=== PATIENT | male | born 1930 | race Caucasian/White ===

== ENCOUNTER 2021-06-13 18:47 | Inpatient (IN) ==
[2021-06-16] MEDS: Cefdinir 300 MG CAPSULE PO SCH (21:48)
[2021-06-17] MEDS: *HR* Enoxaparin 40 MG/0.4 ML SYRINGE SQ SCH (05:39)
[2021-06-17] MEDS: Multivit/Ca/Min/Fe/FA 1 TAB TABLET PO SCH (07:21)
[2021-06-17] MEDS: Cefdinir 300 MG CAPSULE PO SCH ×2 (07:22→21:21)
[2021-06-17 07:39] LABS: Basophils % 0.5 %; Eosinophils # 0.1 K/mcL (0.0-0.6); Eosinophils % 0.9 %; Hematocrit 35.4 % (37.5-50.1); Hemoglobin 11.8 g/dL (12.9-16.9); Immature Granulocytes % 2.5 % (0-4); Lymphocytes # 1.4 K/mcL (0.6-4.6); Lymphocytes % 18.2 %; Mean Corpuscular HGB Conc 33.3 g/dL (31.6-35.5); Mean Corpuscular Hemoglobin 28.9 pg (28.0-33.3); Mean Corpuscular Volume 86.6 fL (83.0-100.0); Mean Platelet Volume 9.3 fL (9.4-12.4); Monocytes % 12.6 %; Neutrophils # 5.1 K/mcL (1.6-8.9); Platelet Count 333 K/mcL (140-400); Red Blood Count 4.09 M/mcL (4.19-5.50); Red Cell Distribution Width 14.8 % (11.5-14.5); Segmented Neutrophils % 65.3 %; White Blood Count 7.9 K/mcL (4.3-11.1)
[2021-06-17 07:51] LABS: BUN/Creatinine Ratio 14 (6-26); Blood Urea Nitrogen 18 mg/dL (8-23); Calcium 9.1 mg/dL (8.6-10.3); Carbon Dioxide 22 mEq/L (23-29); Chloride 110 mEq/L (98-107); Glucose 112 mg/dL (70-105); Osmolality,Calculated 287 (280-300); Sodium 137 mEq/L (136-145); eGFR For African Americans > 60 (> 60); eGFR For Non-African Americans 53 (> 60)
[2021-06-17] MEDS: Cholecalciferol (D-3) 1,000 UNIT (25MCG) TABLET PO SCH (08:37)
[2021-06-17] MEDS: Cyanocobalamin (B-12) 1,000 MCG TABLET PO SCH (08:37)
[2021-06-17] MEDS: lisinopriL 5 MG TABLET PO SCH (08:37)
[2021-06-17] MEDS: predniSONE 20 MG TABLET PO SCH (18:08)
[2021-06-17] MEDS: Colchicine 0.6 MG TABLET PO SCH (21:21)
[2021-06-18] MEDS: *HR* Enoxaparin 40 MG/0.4 ML SYRINGE SQ SCH (05:58)
[2021-06-18 07:24] LABS: Hematocrit 33.1 % (37.5-50.1); Hemoglobin 11.1 g/dL (12.9-16.9); Mean Corpuscular HGB Conc 33.5 g/dL (31.6-35.5); Mean Corpuscular Hemoglobin 29.1 pg (28.0-33.3); Mean Corpuscular Volume 86.9 fL (83.0-100.0); Mean Platelet Volume 9.3 fL (9.4-12.4); Platelet Count 319 K/mcL (140-400); Red Blood Count 3.81 M/mcL (4.19-5.50); Red Cell Distribution Width 14.6 % (11.5-14.5); White Blood Count 9.9 K/mcL (4.3-11.1)
[2021-06-18 07:37] LABS: BUN/Creatinine Ratio 14 (6-26); Blood Urea Nitrogen 18 mg/dL (8-23); Calcium 9.4 mg/dL (8.6-10.3); Carbon Dioxide 24 mEq/L (23-29); Chloride 108 mEq/L (98-107); Glucose 142 mg/dL (70-105); Osmolality,Calculated 288 (280-300); Potassium 4.1 mEq/L (3.5-5.1); Sodium 137 mEq/L (136-145); Uric Acid 7.7 mg/dL (2.3-7.6); eGFR For African Americans > 60 (> 60); eGFR For Non-African Americans 52 (> 60)
[2021-06-18] MEDS: lisinopriL 5 MG TABLET PO SCH (11:16)
[2021-06-18] MEDS: Cyanocobalamin (B-12) 1,000 MCG TABLET PO SCH (11:16)
[2021-06-18] MEDS: Cefdinir 300 MG CAPSULE PO SCH ×2 (11:16→20:45)
[2021-06-18] MEDS: Cholecalciferol (D-3) 1,000 UNIT (25MCG) TABLET PO SCH (11:16)
[2021-06-18] MEDS: Colchicine 0.6 MG TABLET PO SCH ×2 (11:17→20:45)
[2021-06-18] MEDS: Multivit/Ca/Min/Fe/FA 1 TAB TABLET PO SCH (11:17)
[2021-06-18] MEDS: predniSONE 20 MG TABLET PO SCH ×2 (11:17→16:20)
[2021-06-19] MEDS: *HR* Enoxaparin 40 MG/0.4 ML SYRINGE SQ SCH (05:23)
[2021-06-19] MEDS: Multivit/Ca/Min/Fe/FA 1 TAB TABLET PO SCH (05:23)
[2021-06-19] MEDS: predniSONE 20 MG TABLET PO SCH ×2 (09:17→16:36)
[2021-06-19] MEDS: Cholecalciferol (D-3) 1,000 UNIT (25MCG) TABLET PO SCH (09:17)
[2021-06-19] MEDS: Cyanocobalamin (B-12) 1,000 MCG TABLET PO SCH (09:18)
[2021-06-19] MEDS: Colchicine 0.6 MG TABLET PO SCH ×2 (09:18→21:00)
[2021-06-19] MEDS: Cefdinir 300 MG CAPSULE PO SCH ×2 (09:18→20:59)
[2021-06-19] MEDS: lisinopriL 5 MG TABLET PO SCH (09:19)
[2021-06-20] MEDS: Multivit/Ca/Min/Fe/FA 1 TAB TABLET PO SCH (06:31)
[2021-06-20] MEDS: *HR* Enoxaparin 40 MG/0.4 ML SYRINGE SQ SCH (06:31)
[2021-06-20] MEDS: Cefdinir 300 MG CAPSULE PO SCH ×2 (08:38→21:02)
[2021-06-20] MEDS: lisinopriL 5 MG TABLET PO SCH (08:38)
[2021-06-20] MEDS: Cyanocobalamin (B-12) 1,000 MCG TABLET PO SCH (08:39)
[2021-06-20] MEDS: Cholecalciferol (D-3) 1,000 UNIT (25MCG) TABLET PO SCH (08:39)
[2021-06-20] MEDS: Colchicine 0.6 MG TABLET PO SCH ×2 (08:39→21:20)
[2021-06-20] MEDS: predniSONE 20 MG TABLET PO SCH ×2 (09:00→16:25)
[2021-06-20] MEDS ORDERED: Oxymetazoline Nasal SPRAY BOTTLE 15ML NS PRN (09:14)
[2021-06-21] MEDS: *HR* Enoxaparin 40 MG/0.4 ML SYRINGE SQ SCH (05:42)
[2021-06-21] MEDS: Multivit/Ca/Min/Fe/FA 1 TAB TABLET PO SCH (05:42)
[2021-06-21] MEDS: Cefdinir 300 MG CAPSULE PO SCH ×2 (09:24→20:05)
[2021-06-21] MEDS: Cyanocobalamin (B-12) 1,000 MCG TABLET PO SCH (09:24)
[2021-06-21] MEDS: Colchicine 0.6 MG TABLET PO SCH ×2 (09:24→20:05)
[2021-06-21] MEDS: Cholecalciferol (D-3) 1,000 UNIT (25MCG) TABLET PO SCH (09:24)
[2021-06-21] MEDS: predniSONE 20 MG TABLET PO SCH ×2 (09:25→17:44)
[2021-06-22] MEDS: Multivit/Ca/Min/Fe/FA 1 TAB TABLET PO SCH (06:00)
[2021-06-22] MEDS: *HR* Enoxaparin 40 MG/0.4 ML SYRINGE SQ SCH (06:00)
[2021-06-22] MEDS: lisinopriL 5 MG TABLET PO SCH (10:06)
[2021-06-22] MEDS: Colchicine 0.6 MG TABLET PO SCH ×2 (10:06→19:39)
[2021-06-22] MEDS: Cyanocobalamin (B-12) 1,000 MCG TABLET PO SCH (10:06)
[2021-06-22] MEDS: predniSONE 20 MG TABLET PO SCH ×2 (10:07→17:49)
[2021-06-22] MEDS: Cholecalciferol (D-3) 1,000 UNIT (25MCG) TABLET PO SCH (10:07)
[2021-06-22] MEDS: Cefdinir 300 MG CAPSULE PO SCH ×2 (10:07→19:39)
[2021-06-23] MEDS: *HR* Enoxaparin 40 MG/0.4 ML SYRINGE SQ SCH (05:09)
[2021-06-23] MEDS: Multivit/Ca/Min/Fe/FA 1 TAB TABLET PO SCH (05:09)
[2021-06-23] MEDS: Cyanocobalamin (B-12) 1,000 MCG TABLET PO SCH (09:36)
[2021-06-23] MEDS: Cefdinir 300 MG CAPSULE PO SCH ×2 (09:36→19:56)
[2021-06-23] MEDS: Cholecalciferol (D-3) 1,000 UNIT (25MCG) TABLET PO SCH (09:36)
[2021-06-23] MEDS: Colchicine 0.6 MG TABLET PO SCH (09:36)
[2021-06-23] MEDS: lisinopriL 5 MG TABLET PO SCH (09:36)
[2021-06-23] MEDS: predniSONE 20 MG TABLET PO SCH (18:10)
[2021-06-24] MEDS: *HR* Enoxaparin 40 MG/0.4 ML SYRINGE SQ SCH (06:26)
[2021-06-24] MEDS: Multivit/Ca/Min/Fe/FA 1 TAB TABLET PO SCH (06:26)
[2021-06-24] MEDS: allopurinoL 100 MG TABLET PO SCH (09:00)
[2021-06-24] MEDS: Cefdinir 300 MG CAPSULE PO SCH ×2 (09:00→21:22)
[2021-06-24] MEDS: Cyanocobalamin (B-12) 1,000 MCG TABLET PO SCH (09:00)
[2021-06-24] MEDS: lisinopriL 5 MG TABLET PO SCH (09:00)
[2021-06-24] MEDS: Cholecalciferol (D-3) 1,000 UNIT (25MCG) TABLET PO SCH (09:00)
[2021-06-25] MEDS: Multivit/Ca/Min/Fe/FA 1 TAB TABLET PO SCH (06:26)
[2021-06-25] MEDS: *HR* Enoxaparin 40 MG/0.4 ML SYRINGE SQ SCH (06:26)
[2021-06-25] MEDS: Cholecalciferol (D-3) 1,000 UNIT (25MCG) TABLET PO SCH (08:21)
[2021-06-25] MEDS: Cefdinir 300 MG CAPSULE PO SCH (08:21)
[2021-06-25] MEDS: Cyanocobalamin (B-12) 1,000 MCG TABLET PO SCH (08:22)
[2021-06-25] MEDS: allopurinoL 100 MG TABLET PO SCH (08:22)
[2021-06-25] MEDS: lisinopriL 5 MG TABLET PO SCH (08:22)
[2021-06-26] MEDS: *HR* Enoxaparin 40 MG/0.4 ML SYRINGE SQ SCH (06:07)
[2021-06-26] MEDS: allopurinoL 100 MG TABLET PO SCH (09:45)
[2021-06-26] MEDS: Multivit/Ca/Min/Fe/FA 1 TAB TABLET PO SCH (09:45)
[2021-06-26] MEDS: Cyanocobalamin (B-12) 1,000 MCG TABLET PO SCH (09:45)
[2021-06-26] MEDS: Cholecalciferol (D-3) 1,000 UNIT (25MCG) TABLET PO SCH (09:45)
[2021-06-26] MEDS: lisinopriL 5 MG TABLET PO SCH (09:46)
[2021-06-27] MEDS: *HR* Enoxaparin 40 MG/0.4 ML SYRINGE SQ SCH (06:08)
[2021-06-27] MEDS: Multivit/Ca/Min/Fe/FA 1 TAB TABLET PO SCH (06:09)
[2021-06-27 07:08] LABS: Basophils # 0.1 K/mcL (0.0-0.2); Eosinophils # 0.1 K/mcL (0.0-0.6); Eosinophils % 1.6 %; Hematocrit 41.3 % (37.5-50.1); Hemoglobin 13.3 g/dL (12.9-16.9); Lymphocytes % 24.7 %; Mean Corpuscular HGB Conc 32.2 g/dL (31.6-35.5); Mean Corpuscular Hemoglobin 28.5 pg (28.0-33.3); Mean Corpuscular Volume 88.4 fL (83.0-100.0); Monocytes # 1.2 K/mcL (0.0-1.3); Monocytes % 14.1 %; Neutrophils # 4.8 K/mcL (1.6-8.9); Platelet Count 367 K/mcL (140-400); Red Blood Count 4.67 M/mcL (4.19-5.50); Red Cell Distribution Width 14.5 % (11.5-14.5); Segmented Neutrophils % 57.6 %; White Blood Count 8.2 K/mcL (4.3-11.1)
[2021-06-27 07:36] LABS: Calcium 9.9 mg/dL (8.6-10.3); Potassium 4.4 mEq/L (3.5-5.1)
[2021-06-27] MEDS: Cyanocobalamin (B-12) 1,000 MCG TABLET PO SCH (10:14)
[2021-06-27] MEDS: allopurinoL 100 MG TABLET PO SCH (10:14)
[2021-06-27] MEDS: Cholecalciferol (D-3) 1,000 UNIT (25MCG) TABLET PO SCH (10:14)
[2021-06-27] MEDS: lisinopriL 5 MG TABLET PO SCH (10:25)
[2021-06-28] MEDS: *HR* Enoxaparin 40 MG/0.4 ML SYRINGE SQ SCH (06:35)
[2021-06-28] MEDS: Multivit/Ca/Min/Fe/FA 1 TAB TABLET PO SCH (06:36)
[2021-06-28] MEDS: Cyanocobalamin (B-12) 1,000 MCG TABLET PO SCH (10:27)
[2021-06-28] MEDS: allopurinoL 100 MG TABLET PO SCH (10:27)
[2021-06-28] MEDS: Cholecalciferol (D-3) 1,000 UNIT (25MCG) TABLET PO SCH (10:27)
[2021-06-28] MEDS: lisinopriL 5 MG TABLET PO SCH (10:27)
[2021-06-28] MEDS: Megestrol Acetate 400 MG/10 ML UDC PO SCH (15:59)
[2021-06-29] MEDS: *HR* Enoxaparin 40 MG/0.4 ML SYRINGE SQ SCH (06:06)
[2021-06-29] MEDS: Multivit/Ca/Min/Fe/FA 1 TAB TABLET PO SCH (08:20)
[2021-06-29] MEDS: Cholecalciferol (D-3) 1,000 UNIT (25MCG) TABLET PO SCH (08:21)
[2021-06-29] MEDS: allopurinoL 100 MG TABLET PO SCH (08:21)
[2021-06-29] MEDS: Megestrol Acetate 400 MG/10 ML UDC PO SCH (08:21)
[2021-06-29] MEDS: Cyanocobalamin (B-12) 1,000 MCG TABLET PO SCH (08:21)
[2021-06-29] MEDS: lisinopriL 5 MG TABLET PO SCH (08:22)
[2021-06-30] MEDS: *HR* Enoxaparin 40 MG/0.4 ML SYRINGE SQ SCH (05:35)
[2021-06-30] MEDS: Megestrol Acetate 400 MG/10 ML UDC PO SCH (08:41)
[2021-06-30] MEDS: Cholecalciferol (D-3) 1,000 UNIT (25MCG) TABLET PO SCH (08:41)
[2021-06-30] MEDS: Cyanocobalamin (B-12) 1,000 MCG TABLET PO SCH (08:41)
[2021-06-30] MEDS: allopurinoL 100 MG TABLET PO SCH (08:41)
[2021-06-30] MEDS: Multivit/Ca/Min/Fe/FA 1 TAB TABLET PO SCH (08:41)
[2021-06-30 08:57] LABS: Hematocrit 41.5 % (37.5-50.1); Hemoglobin 13.7 g/dL (12.9-16.9); Mean Corpuscular Hemoglobin 29.5 pg (28.0-33.3); Mean Corpuscular Volume 89.4 fL (83.0-100.0); Mean Platelet Volume 11.9 fL (9.4-12.4); Platelet Count 236 K/mcL (140-400); Red Blood Count 4.64 M/mcL (4.19-5.50); Red Cell Distribution Width 14.5 % (11.5-14.5); White Blood Count 10.6 K/mcL (4.3-11.1)
[2021-06-30 09:34] LABS: Calcium 10.1 mg/dL (8.6-10.3); Potassium 4.5 mEq/L (3.5-5.1)
[2021-06-30] MEDS: 0.9 % Sodium Chloride 1,000 ML IVC SCH (14:58)
[2021-07-01] MEDS: 0.9 % Sodium Chloride 1,000 ML IVC SCH ×4 (01:27→22:50)
[2021-07-01] MEDS: Cyanocobalamin (B-12) 1,000 MCG TABLET PO SCH (08:14)
[2021-07-01] MEDS: Cholecalciferol (D-3) 1,000 UNIT (25MCG) TABLET PO SCH (08:15)
[2021-07-01] MEDS: Megestrol Acetate 400 MG/10 ML UDC PO SCH (08:15)
[2021-07-01] MEDS: allopurinoL 100 MG TABLET PO SCH (08:15)
[2021-07-01] MEDS: Multivit/Ca/Min/Fe/FA 1 TAB TABLET PO SCH (08:16)
[2021-07-01 11:39] LABS: Hematocrit 42.7 % (37.5-50.1); Hemoglobin 13.8 g/dL (12.9-16.9); Mean Corpuscular HGB Conc 32.3 g/dL (31.6-35.5); Mean Corpuscular Hemoglobin 28.9 pg (28.0-33.3); Mean Corpuscular Volume 89.3 fL (83.0-100.0); Mean Platelet Volume 11.1 fL (9.4-12.4); Platelet Count 275 K/mcL (140-400); Red Blood Count 4.78 M/mcL (4.19-5.50); Red Cell Distribution Width 14.3 % (11.5-14.5)
[2021-07-01 11:51] LABS: Calcium 9.6 mg/dL (8.6-10.3); Potassium 4.8 mEq/L (3.5-5.1)
[2021-07-01 14:19] LABS: Adenovirus Not Detected (Not Detect); Bordetella Pertussis Not Detected (Not Detect); Chlamydophila pneumoniae Not Detected (Not Detect); Coronavirus 229E Not Detected (Not Detect); Coronavirus HKU1 Not Detected (Not Detect); Coronavirus NL63 Not Detected (Not Detect); Coronavirus OC43 Not Detected (Not Detect); Human Metapneumovirus Not Detected (Not Detect); Human Rhinovirus/Enterovirus Not Detected (Not Detect); Influenza A Subtype 2009 H1 Not Detected (Not Detect); Influenza B Not Detected (Not Detect); Mycoplasma pneumoniae Not Detected (Not Detect); Parainfluenza Virus 1 Not Detected (Not Detect); Parainfluenza Virus 2 Not Detected (Not Detect); Parainfluenza Virus 3 Not Detected (Not Detect); Parainfluenza Virus 4 Not Detected (Not Detect); Respiratory Syncytial Virus Not Detected (Not Detect); SARS-CoV-2 Not Detected (Not Detect)
[2021-07-01] MEDS ORDERED: Albuterol 2.5 MG/3 ML NEBULIZER IH PRN (15:14)
[2021-07-01] MEDS: Piperacillin/Tazobactam 3.375 GM in 0.9 % Sodium Chloride Mini Bag 100 ML IVPB SCH ×2 (16:08→23:43)
[2021-07-01 16:13] LABS: Bilirubin,Urine Negative (Negative); Blood,Urine Moderate (Negative); Clarity,Urine Slightly Cloudy (Clear); Color,Urine Yellow (Yellow); Glucose,Urine (UA) Normal (Normal); Ketones,Urine Negative (Negative); Leukocyte Esterase,Urine Moderate (Negative); Nitrite,Urine Negative (Negative); Protein,Urine 30 mg/dL (Neg-Trace); Specific Gravity,Urine 1.015 (1.010-1.025); Urobilinogen,Urine Normal (Normal)
[2021-07-01 16:21] LABS: Bacteria,Urine Moderate per hpf (None-Few); WBC,Urine 15-30 per hpf (0-3)
[2021-07-02 06:34] LABS: Hematocrit 38.6 % (37.5-50.1); Hemoglobin 12.9 g/dL (12.9-16.9); Mean Corpuscular HGB Conc 33.4 g/dL (31.6-35.5); Mean Corpuscular Hemoglobin 29.1 pg (28.0-33.3); Mean Corpuscular Volume 87.1 fL (83.0-100.0); Mean Platelet Volume 10.4 fL (9.4-12.4); Platelet Count 311 K/mcL (140-400); Red Blood Count 4.43 M/mcL (4.19-5.50); Red Cell Distribution Width 14.5 % (11.5-14.5); White Blood Count 27.6 K/mcL (4.3-11.1)
[2021-07-02 06:54] LABS: Calcium 9.4 mg/dL (8.6-10.3); Potassium 4.6 mEq/L (3.5-5.1)
[2021-07-02 07:31] LABS: Lymphocytes # 2.2 K/mcL (0.6-4.6); Monocytes # 2.8 K/mcL (0.0-1.3); Neutrophils # 22.6 K/mcL (1.6-8.9); Platelet Estimate Normal (Normal)
[2021-07-02] MEDS: Megestrol Acetate 400 MG/10 ML UDC PO SCH (08:10)
[2021-07-02] MEDS: Multivit/Ca/Min/Fe/FA 1 TAB TABLET PO SCH (08:11)
[2021-07-02] MEDS: Cholecalciferol (D-3) 1,000 UNIT (25MCG) TABLET PO SCH (08:12)
[2021-07-02] MEDS: Piperacillin/Tazobactam 3.375 GM in 0.9 % Sodium Chloride Mini Bag 100 ML IVPB SCH (08:12)
[2021-07-02] MEDS: Cyanocobalamin (B-12) 1,000 MCG TABLET PO SCH (08:12)
[2021-07-02] MEDS: 0.9 % Sodium Chloride 1,000 ML IVC SCH (08:14)
[2021-07-02] MEDS ORDERED: Doxycycline 100 MG in 0.9 % Sodium Chloride Mini Bag 100 ML IVPB SCH (09:00)
[2021-07-02] MEDS ORDERED: Albumin 25% 25gram/100mL 25 GM/100 ML IV.SOLN IVPB ONE (09:05)
[2021-07-02] MEDS ORDERED: Hydrocortisone Sodium Succ 100 MG/2 ML VIAL IVP ONE (10:27)
[2021-07-02] MEDS ORDERED: *HR* LORazepam 2 MG/ML VIAL IVP ONE ×2 (11:28→11:50)
[2021-07-02] MEDS ORDERED: *HR* LORazepam 2 MG/ML VIAL ONE (11:28)
[2021-07-02] MEDS ORDERED: 0.9 % Sodium Chloride 1,000 ML IVC ONE (12:14)
[2021-07-02] MEDS ORDERED: 0.9 % Sodium Chloride 1,000 ML ONE (12:18)
[2021-07-02 15:04] VITALS: BP 70/50; PULSE 93; RESP 24; TEMP 98.3; O2SAT 98
== END 2021-07-02 12:30 | disposition short-term general hospital (02) ==
LOC: INPPIK 06-16 15:57
PROVIDERS: ADMIT Family Medicine; ATTEND Family Medicine

== ENCOUNTER 2021-07-11 11:55 | Inpatient (IN) ==
[2021-07-12] MEDS ORDERED: Acetaminophen 325 MG TABLET PO PRN (13:06)
[2021-07-12] MEDS ORDERED: Ondansetron ODT 4 MG TAB.RAPDIS SL PRN (13:08)
[2021-07-12] MEDS ORDERED: Ipratropium/Albuterol Neb 3 ML IH PRN (13:09)
[2021-07-12] MEDS: *HR* Heparin 5,000 UNIT/ML VIAL SQ SCH (21:07)
[2021-07-13] MEDS: *HR* Heparin 5,000 UNIT/ML VIAL SQ SCH ×2 (05:24→14:07)
[2021-07-13 07:27] LABS: Basophils # 0.1 K/mcL (0.0-0.2); Basophils % 0.8 %; Eosinophils # 0.1 K/mcL (0.0-0.6); Eosinophils % 1.3 %; Hematocrit 39.7 % (37.5-50.1); Hemoglobin 12.5 g/dL (12.9-16.9); Immature Granulocytes % 0.9 % (0-4); Lymphocytes # 1.7 K/mcL (0.6-4.6); Mean Corpuscular HGB Conc 31.5 g/dL (31.6-35.5); Mean Corpuscular Hemoglobin 28.3 pg (28.0-33.3); Mean Platelet Volume 9.4 fL (9.4-12.4); Monocytes # 0.9 K/mcL (0.0-1.3); Monocytes % 11.1 %; Neutrophils # 5.6 K/mcL (1.6-8.9); Platelet Count 336 K/mcL (140-400); Red Blood Count 4.41 M/mcL (4.19-5.50); Red Cell Distribution Width 15.2 % (11.5-14.5); Segmented Neutrophils % 65.9 %; White Blood Count 8.5 K/mcL (4.3-11.1)
[2021-07-13 07:52] LABS: Calcium 10.2 mg/dL (8.6-10.3); Potassium 4.3 mEq/L (3.5-5.1)
[2021-07-13] MEDS: Cholecalciferol (D-3) 1,000 UNIT (25MCG) TABLET PO SCH (08:38)
[2021-07-13] MEDS: Multivit/Ca/Min/Fe/FA 1 TAB TABLET PO SCH (08:38)
[2021-07-13] MEDS: cefTRIAXone 1,000 MG in 0.9 % Sodium Chloride 10 ML IVP SCH (08:39)
[2021-07-13] MEDS: Cyanocobalamin (B-12) 1,000 MCG TABLET PO SCH (08:39)
[2021-07-13] MEDS: DAPTOmycin 700 MG in 0.9 % Sodium Chloride 100 ML IVPB SCH (13:47)
[2021-07-14] MEDS: Cyanocobalamin (B-12) 1,000 MCG TABLET PO SCH (08:37)
[2021-07-14] MEDS: Cholecalciferol (D-3) 1,000 UNIT (25MCG) TABLET PO SCH (08:37)
[2021-07-14] MEDS: Multivit/Ca/Min/Fe/FA 1 TAB TABLET PO SCH (08:37)
[2021-07-14] MEDS: cefTRIAXone 1,000 MG in 0.9 % Sodium Chloride 10 ML IVP SCH (08:38)
[2021-07-15 07:18] LABS: Basophils # 0.1 K/mcL (0.0-0.2); Basophils % 0.6 %; Eosinophils # 0.2 K/mcL (0.0-0.6); Eosinophils % 1.9 %; Hematocrit 39.6 % (37.5-50.1); Hemoglobin 12.7 g/dL (12.9-16.9); Immature Granulocytes % 0.9 % (0-4); Lymphocytes # 1.7 K/mcL (0.6-4.6); Lymphocytes % 21.6 %; Mean Corpuscular HGB Conc 32.1 g/dL (31.6-35.5); Mean Corpuscular Hemoglobin 27.9 pg (28.0-33.3); Mean Platelet Volume 9.5 fL (9.4-12.4); Monocytes % 12.4 %; Platelet Count 388 K/mcL (140-400); Red Blood Count 4.55 M/mcL (4.19-5.50); Red Cell Distribution Width 14.9 % (11.5-14.5); Segmented Neutrophils % 62.6 %
[2021-07-15 07:20] LABS: Calcium 10.5 mg/dL (8.6-10.3); Potassium 4.4 mEq/L (3.5-5.1)
[2021-07-15] MEDS: Cholecalciferol (D-3) 1,000 UNIT (25MCG) TABLET PO SCH (09:09)
[2021-07-15] MEDS: Multivit/Ca/Min/Fe/FA 1 TAB TABLET PO SCH (09:09)
[2021-07-15] MEDS: cefTRIAXone 1,000 MG in 0.9 % Sodium Chloride 10 ML IVP SCH (09:10)
[2021-07-15] MEDS: Cyanocobalamin (B-12) 1,000 MCG TABLET PO SCH (09:11)
[2021-07-15] MEDS: DAPTOmycin 700 MG in 0.9 % Sodium Chloride 100 ML IVPB SCH (13:46)
[2021-07-16] MEDS: Cyanocobalamin (B-12) 1,000 MCG TABLET PO SCH (08:46)
[2021-07-16] MEDS: Multivit/Ca/Min/Fe/FA 1 TAB TABLET PO SCH (08:46)
[2021-07-16] MEDS: Cholecalciferol (D-3) 1,000 UNIT (25MCG) TABLET PO SCH (08:47)
[2021-07-16] MEDS: cefTRIAXone 1,000 MG in 0.9 % Sodium Chloride 10 ML IVP SCH (08:47)
[2021-07-17 06:35] LABS: Basophils # 0.1 K/mcL (0.0-0.2); Basophils % 0.9 %; Eosinophils # 0.1 K/mcL (0.0-0.6); Eosinophils % 1.6 %; Hematocrit 40.5 % (37.5-50.1); Hemoglobin 12.9 g/dL (12.9-16.9); Immature Granulocytes % 0.7 % (0-4); Lymphocytes % 28.3 %; Mean Corpuscular HGB Conc 31.9 g/dL (31.6-35.5); Mean Platelet Volume 9.5 fL (9.4-12.4); Monocytes % 14.3 %; Neutrophils # 3.8 K/mcL (1.6-8.9); Platelet Count 418 K/mcL (140-400); Red Cell Distribution Width 14.6 % (11.5-14.5); Segmented Neutrophils % 54.2 %; White Blood Count 6.9 K/mcL (4.3-11.1)
[2021-07-17 06:56] LABS: Calcium 10.5 mg/dL (8.6-10.3); Potassium 4.4 mEq/L (3.5-5.1)
[2021-07-17] MEDS: Cholecalciferol (D-3) 1,000 UNIT (25MCG) TABLET PO SCH (10:08)
[2021-07-17] MEDS: cefTRIAXone 1,000 MG in 0.9 % Sodium Chloride 10 ML IVP SCH (10:08)
[2021-07-17] MEDS: Multivit/Ca/Min/Fe/FA 1 TAB TABLET PO SCH (10:08)
[2021-07-17] MEDS: Cyanocobalamin (B-12) 1,000 MCG TABLET PO SCH (10:08)
[2021-07-17] MEDS: DAPTOmycin 700 MG in 0.9 % Sodium Chloride 100 ML IVPB SCH (16:36)
[2021-07-18] MEDS: Multivit/Ca/Min/Fe/FA 1 TAB TABLET PO SCH (08:31)
[2021-07-18] MEDS: Cholecalciferol (D-3) 1,000 UNIT (25MCG) TABLET PO SCH (08:31)
[2021-07-18] MEDS: Cyanocobalamin (B-12) 1,000 MCG TABLET PO SCH (08:32)
[2021-07-18] MEDS: cefTRIAXone 1,000 MG in 0.9 % Sodium Chloride 10 ML IVP SCH (08:33)
[2021-07-18 10:27] LABS: Basophils # 0.1 K/mcL (0.0-0.2); Basophils % 0.8 %; Eosinophils # 0.1 K/mcL (0.0-0.6); Eosinophils % 1.3 %; Hematocrit 40.2 % (37.5-50.1); Hemoglobin 12.6 g/dL (12.9-16.9); Immature Granulocytes % 1.2 % (0-4); Lymphocytes # 1.5 K/mcL (0.6-4.6); Lymphocytes % 19.8 %; Mean Corpuscular HGB Conc 31.3 g/dL (31.6-35.5); Mean Corpuscular Hemoglobin 27.9 pg (28.0-33.3); Mean Corpuscular Volume 89.1 fL (83.0-100.0); Mean Platelet Volume 9.4 fL (9.4-12.4); Neutrophils # 4.9 K/mcL (1.6-8.9); Platelet Count 415 K/mcL (140-400); Red Blood Count 4.51 M/mcL (4.19-5.50); Red Cell Distribution Width 14.6 % (11.5-14.5); Segmented Neutrophils % 63.9 %; White Blood Count 7.7 K/mcL (4.3-11.1)
[2021-07-18 10:41] LABS: Calcium 10.4 mg/dL (8.6-10.3); Potassium 4.6 mEq/L (3.5-5.1); Uric Acid 6.4 mg/dL (2.3-7.6)
[2021-07-19] MEDS: cefTRIAXone 1,000 MG in 0.9 % Sodium Chloride 10 ML IVP SCH (11:20)
[2021-07-19] MEDS: predniSONE 20 MG TABLET PO SCH (11:20)
[2021-07-19] MEDS: Multivit/Ca/Min/Fe/FA 1 TAB TABLET PO SCH (11:21)
[2021-07-19] MEDS: Cyanocobalamin (B-12) 1,000 MCG TABLET PO SCH (11:21)
[2021-07-19] MEDS: Cholecalciferol (D-3) 1,000 UNIT (25MCG) TABLET PO SCH (11:21)
[2021-07-19] MEDS: DAPTOmycin 700 MG in 0.9 % Sodium Chloride 100 ML IVPB SCH (16:01)
[2021-07-20] MEDS: DAPTOmycin 700 MG in 0.9 % Sodium Chloride 100 ML IVPB SCH (08:06)
[2021-07-20] MEDS: Cyanocobalamin (B-12) 1,000 MCG TABLET PO SCH (08:24)
[2021-07-20] MEDS: predniSONE 20 MG TABLET PO SCH (08:24)
[2021-07-20] MEDS: Cholecalciferol (D-3) 1,000 UNIT (25MCG) TABLET PO SCH (08:24)
[2021-07-20] MEDS: Multivit/Ca/Min/Fe/FA 1 TAB TABLET PO SCH (08:24)
[2021-07-20] MEDS: cefTRIAXone 1,000 MG in 0.9 % Sodium Chloride 10 ML IVP SCH (08:31)
[2021-07-21 07:55] LABS: Basophils % 0.2 %; Eosinophils % 0.1 %; Hematocrit 40.5 % (37.5-50.1); Immature Granulocytes % 0.6 % (0-4); Lymphocytes # 2.3 K/mcL (0.6-4.6); Lymphocytes % 24.2 %; Mean Corpuscular HGB Conc 32.1 g/dL (31.6-35.5); Mean Corpuscular Volume 87.1 fL (83.0-100.0); Mean Platelet Volume 9.4 fL (9.4-12.4); Monocytes # 0.8 K/mcL (0.0-1.3); Neutrophils # 6.1 K/mcL (1.6-8.9); Platelet Count 472 K/mcL (140-400); Red Blood Count 4.65 M/mcL (4.19-5.50); Red Cell Distribution Width 14.3 % (11.5-14.5); Segmented Neutrophils % 65.9 %; White Blood Count 9.3 K/mcL (4.3-11.1)
[2021-07-21 08:13] LABS: Calcium 11.1 mg/dL (8.6-10.3); Potassium 4.4 mEq/L (3.5-5.1)
[2021-07-21] MEDS: predniSONE 20 MG TABLET PO SCH (09:32)
[2021-07-21] MEDS: Cyanocobalamin (B-12) 1,000 MCG TABLET PO SCH (09:32)
[2021-07-21] MEDS: Cholecalciferol (D-3) 1,000 UNIT (25MCG) TABLET PO SCH (09:32)
[2021-07-21] MEDS: Multivit/Ca/Min/Fe/FA 1 TAB TABLET PO SCH (09:32)
[2021-07-21] MEDS: cefTRIAXone 1,000 MG in 0.9 % Sodium Chloride 10 ML IVP SCH (09:32)
[2021-07-21] MEDS: DAPTOmycin 700 MG in 0.9 % Sodium Chloride 100 ML IVPB SCH (16:00)
[2021-07-22] MEDS: cefTRIAXone 1,000 MG in 0.9 % Sodium Chloride 10 ML IVP SCH (09:44)
[2021-07-22] MEDS: Multivit/Ca/Min/Fe/FA 1 TAB TABLET PO SCH (09:44)
[2021-07-22] MEDS: predniSONE 20 MG TABLET PO SCH (09:44)
[2021-07-22] MEDS: Cyanocobalamin (B-12) 1,000 MCG TABLET PO SCH (09:44)
[2021-07-22] MEDS: Cholecalciferol (D-3) 1,000 UNIT (25MCG) TABLET PO SCH (09:44)
[2021-07-22] MEDS: DAPTOmycin 700 MG in 0.9 % Sodium Chloride 100 ML IVPB SCH (17:26)
[2021-07-23] MEDS: Multivit/Ca/Min/Fe/FA 1 TAB TABLET PO SCH (08:48)
[2021-07-23] MEDS: cefTRIAXone 1,000 MG in 0.9 % Sodium Chloride 10 ML IVP SCH (08:49)
[2021-07-23] MEDS: predniSONE 20 MG TABLET PO SCH (08:49)
[2021-07-23] MEDS: Cholecalciferol (D-3) 1,000 UNIT (25MCG) TABLET PO SCH (08:49)
[2021-07-23] MEDS: Cyanocobalamin (B-12) 1,000 MCG TABLET PO SCH (08:49)
[2021-07-23] MEDS: DAPTOmycin 700 MG in 0.9 % Sodium Chloride 100 ML IVPB SCH (16:01)
[2021-07-24 07:13] LABS: Basophils % 0.3 %; Eosinophils % 0.2 %; Hematocrit 40.9 % (37.5-50.1); Hemoglobin 13.3 g/dL (12.9-16.9); Immature Granulocytes % 0.8 % (0-4); Lymphocytes # 2.9 K/mcL (0.6-4.6); Lymphocytes % 19.2 %; Mean Corpuscular HGB Conc 32.5 g/dL (31.6-35.5); Mean Corpuscular Hemoglobin 28.1 pg (28.0-33.3); Mean Corpuscular Volume 86.3 fL (83.0-100.0); Mean Platelet Volume 9.5 fL (9.4-12.4); Monocytes # 1.5 K/mcL (0.0-1.3); Monocytes % 10.2 %; Neutrophils # 10.4 K/mcL (1.6-8.9); Platelet Count 455 K/mcL (140-400); Red Blood Count 4.74 M/mcL (4.19-5.50); Red Cell Distribution Width 14.3 % (11.5-14.5); Segmented Neutrophils % 69.3 %
[2021-07-24 07:19] LABS: Basophils # 0.1 K/mcL (0.0-0.2)
[2021-07-24 07:24] LABS: BUN/Creatinine Ratio 34 (6-26); Blood Urea Nitrogen 44 mg/dL (8-23); Calcium 10.7 mg/dL (8.6-10.3); Carbon Dioxide 22 mEq/L (23-29); Chloride 104 mEq/L (98-107); Glucose 171 mg/dL (70-105); Osmolality,Calculated 293 (280-300); Potassium 4.2 mEq/L (3.5-5.1); Sodium 134 mEq/L (136-145); eGFR For African Americans > 60 (> 60); eGFR For Non-African Americans 52 (> 60)
[2021-07-24] MEDS: cefTRIAXone 1,000 MG in 0.9 % Sodium Chloride 10 ML IVP SCH (09:18)
[2021-07-24] MEDS: Cholecalciferol (D-3) 1,000 UNIT (25MCG) TABLET PO SCH (09:18)
[2021-07-24] MEDS: Multivit/Ca/Min/Fe/FA 1 TAB TABLET PO SCH (09:18)
[2021-07-24] MEDS: Cyanocobalamin (B-12) 1,000 MCG TABLET PO SCH (09:18)
[2021-07-25] MEDS: Multivit/Ca/Min/Fe/FA 1 TAB TABLET PO SCH (08:06)
[2021-07-25] MEDS: Cyanocobalamin (B-12) 1,000 MCG TABLET PO SCH (08:06)
[2021-07-25] MEDS: Cholecalciferol (D-3) 1,000 UNIT (25MCG) TABLET PO SCH (08:06)
[2021-07-26] MEDS: Multivit/Ca/Min/Fe/FA 1 TAB TABLET PO SCH (09:37)
[2021-07-26] MEDS: Cyanocobalamin (B-12) 1,000 MCG TABLET PO SCH (09:37)
[2021-07-26] MEDS: Cholecalciferol (D-3) 1,000 UNIT (25MCG) TABLET PO SCH (09:37)
[2021-07-26 11:01] LABS: Basophils # 0.1 K/mcL (0.0-0.2); Basophils % 0.6 %; Eosinophils # 0.2 K/mcL (0.0-0.6); Eosinophils % 1.2 %; Hematocrit 46.2 % (37.5-50.1); Hemoglobin 14.5 g/dL (12.9-16.9); Immature Granulocytes % 1.2 % (0-4); Lymphocytes # 2.1 K/mcL (0.6-4.6); Lymphocytes % 16.5 %; Mean Corpuscular HGB Conc 31.4 g/dL (31.6-35.5); Mean Corpuscular Hemoglobin 27.7 pg (28.0-33.3); Mean Corpuscular Volume 88.3 fL (83.0-100.0); Mean Platelet Volume 10.1 fL (9.4-12.4); Monocytes # 1.3 K/mcL (0.0-1.3); Platelet Count 437 K/mcL (140-400); Red Blood Count 5.23 M/mcL (4.19-5.50); Red Cell Distribution Width 14.6 % (11.5-14.5); Segmented Neutrophils % 70.5 %; White Blood Count 12.7 K/mcL (4.3-11.1)
[2021-07-26 11:20] LABS: Calcium 10.9 mg/dL (8.6-10.3); Potassium 4.3 mEq/L (3.5-5.1)
[2021-07-27] MEDS: Multivit/Ca/Min/Fe/FA 1 TAB TABLET PO SCH (08:12)
[2021-07-27] MEDS: Cyanocobalamin (B-12) 1,000 MCG TABLET PO SCH (08:12)
[2021-07-27] MEDS: Cholecalciferol (D-3) 1,000 UNIT (25MCG) TABLET PO SCH (08:12)
[2021-07-28] MEDS: Cholecalciferol (D-3) 1,000 UNIT (25MCG) TABLET PO SCH (09:38)
[2021-07-28] MEDS: Multivit/Ca/Min/Fe/FA 1 TAB TABLET PO SCH (09:38)
[2021-07-28] MEDS: Cyanocobalamin (B-12) 1,000 MCG TABLET PO SCH (09:39)
[2021-07-29 07:18] LABS: Basophils # 0.1 K/mcL (0.0-0.2); Basophils % 0.8 %; Eosinophils # 0.1 K/mcL (0.0-0.6); Eosinophils % 1.6 %; Hematocrit 45.2 % (37.5-50.1); Hemoglobin 14.2 g/dL (12.9-16.9); Immature Granulocytes % 1.4 % (0-4); Lymphocytes # 1.7 K/mcL (0.6-4.6); Lymphocytes % 19.3 %; Mean Corpuscular HGB Conc 31.4 g/dL (31.6-35.5); Mean Corpuscular Hemoglobin 27.9 pg (28.0-33.3); Mean Corpuscular Volume 88.8 fL (83.0-100.0); Mean Platelet Volume 10.3 fL (9.4-12.4); Monocytes # 1.3 K/mcL (0.0-1.3); Neutrophils # 5.4 K/mcL (1.6-8.9); Platelet Count 306 K/mcL (140-400); Red Blood Count 5.09 M/mcL (4.19-5.50); Red Cell Distribution Width 14.6 % (11.5-14.5); Segmented Neutrophils % 61.9 %; White Blood Count 8.7 K/mcL (4.3-11.1)
[2021-07-29 07:51] LABS: Calcium 10.6 mg/dL (8.6-10.3); Magnesium 2.3 mg/dL (1.6-2.6); Potassium 4.1 mEq/L (3.5-5.1)
[2021-07-29] MEDS: Multivit/Ca/Min/Fe/FA 1 TAB TABLET PO SCH (10:06)
[2021-07-29] MEDS: Cholecalciferol (D-3) 1,000 UNIT (25MCG) TABLET PO SCH (10:06)
[2021-07-29] MEDS: Megestrol Acetate 400 MG/10 ML UDC PO SCH (10:07)
[2021-07-29] MEDS: Cyanocobalamin (B-12) 1,000 MCG TABLET PO SCH (10:08)
[2021-07-30] MEDS: Multivit/Ca/Min/Fe/FA 1 TAB TABLET PO SCH (08:49)
[2021-07-30] MEDS: Cholecalciferol (D-3) 1,000 UNIT (25MCG) TABLET PO SCH (08:49)
[2021-07-30] MEDS: Cyanocobalamin (B-12) 1,000 MCG TABLET PO SCH (08:49)
[2021-07-30] MEDS: Megestrol Acetate 400 MG/10 ML UDC PO SCH (08:50)
[2021-07-30] MEDS ORDERED: DAPTOmycin 750 MG in 0.9 % Sodium Chloride 100 ML IVPB SCH (16:00)
[2021-07-30] MEDS ORDERED: Acyclovir 200 MG CAPSULE PO SCH (16:00)
[2021-07-30] MEDS: Acyclovir 200 MG CAPSULE PO SCH ×2 (16:13→21:39)
[2021-07-30] MEDS: DAPTOmycin 700 MG in 0.9 % Sodium Chloride 100 ML IVPB SCH (16:58)
[2021-07-31 07:55] LABS: Basophils # 0.1 K/mcL (0.0-0.2); Basophils % 0.7 %; Eosinophils # 0.2 K/mcL (0.0-0.6); Eosinophils % 2.2 %; Hematocrit 42.9 % (37.5-50.1); Hemoglobin 13.8 g/dL (12.9-16.9); Immature Granulocytes % 1.2 % (0-4); Lymphocytes % 23.2 %; Mean Corpuscular HGB Conc 32.2 g/dL (31.6-35.5); Mean Corpuscular Hemoglobin 27.6 pg (28.0-33.3); Mean Corpuscular Volume 85.8 fL (83.0-100.0); Mean Platelet Volume 10.4 fL (9.4-12.4); Monocytes # 1.2 K/mcL (0.0-1.3); Platelet Count 305 K/mcL (140-400); Red Cell Distribution Width 14.4 % (11.5-14.5); Segmented Neutrophils % 58.7 %; White Blood Count 8.5 K/mcL (4.3-11.1)
[2021-07-31 08:30] LABS: BUN/Creatinine Ratio 29 (6-26); Blood Urea Nitrogen 38 mg/dL (8-23); Calcium 10.2 mg/dL (8.6-10.3); Carbon Dioxide 23 mEq/L (23-29); Chloride 104 mEq/L (98-107); Glucose 132 mg/dL (70-105); Osmolality,Calculated 291 (280-300); Potassium 3.9 mEq/L (3.5-5.1); Sodium 135 mEq/L (136-145); eGFR For African Americans > 60 (> 60); eGFR For Non-African Americans 52 (> 60)
[2021-07-31] MEDS: Acyclovir 200 MG CAPSULE PO SCH ×3 (08:44→19:31)
[2021-07-31] MEDS: Multivit/Ca/Min/Fe/FA 1 TAB TABLET PO SCH (08:44)
[2021-07-31] MEDS: Megestrol Acetate 400 MG/10 ML UDC PO SCH (08:44)
[2021-07-31] MEDS: Cholecalciferol (D-3) 1,000 UNIT (25MCG) TABLET PO SCH (08:45)
[2021-07-31] MEDS: Cyanocobalamin (B-12) 1,000 MCG TABLET PO SCH (08:45)
[2021-07-31] MEDS ORDERED: Linezolid 600 MG TABLET PO ONE (09:00)
[2021-07-31] MEDS: DAPTOmycin 700 MG in 0.9 % Sodium Chloride 100 ML IVPB SCH (17:21)
[2021-08-01] MEDS: Acyclovir 200 MG CAPSULE PO SCH ×5 (08:52→23:15)
[2021-08-01] MEDS: Cyanocobalamin (B-12) 1,000 MCG TABLET PO SCH (08:54)
[2021-08-01] MEDS: Cholecalciferol (D-3) 1,000 UNIT (25MCG) TABLET PO SCH (08:54)
[2021-08-01] MEDS: Multivit/Ca/Min/Fe/FA 1 TAB TABLET PO SCH (08:55)
[2021-08-01] MEDS: Megestrol Acetate 400 MG/10 ML UDC PO SCH (08:55)
[2021-08-01 11:15] LABS: Influenza A PCR Negative (Negative); Influenza B PCR Negative (Negative); Resp. Syncytial Virus PCR Negative (Negative)
[2021-08-01 11:16] LABS: SARS-CoV-2 by PCR (In House) Negative (Negative)
[2021-08-01] MEDS: DAPTOmycin 700 MG in 0.9 % Sodium Chloride 100 ML IVPB SCH (16:44)
[2021-08-02 06:43] LABS: Basophils # 0.1 K/mcL (0.0-0.2); Basophils % 0.6 %; Eosinophils # 0.2 K/mcL (0.0-0.6); Eosinophils % 2.2 %; Hemoglobin 13.7 g/dL (12.9-16.9); Immature Granulocytes % 1.1 % (0-4); Lymphocytes # 2.6 K/mcL (0.6-4.6); Mean Corpuscular HGB Conc 31.9 g/dL (31.6-35.5); Mean Corpuscular Hemoglobin 27.6 pg (28.0-33.3); Mean Corpuscular Volume 86.7 fL (83.0-100.0); Mean Platelet Volume 10.2 fL (9.4-12.4); Monocytes # 0.9 K/mcL (0.0-1.3); Neutrophils # 4.6 K/mcL (1.6-8.9); Platelet Count 305 K/mcL (140-400); Red Blood Count 4.96 M/mcL (4.19-5.50); Red Cell Distribution Width 14.3 % (11.5-14.5); Segmented Neutrophils % 54.1 %; White Blood Count 8.5 K/mcL (4.3-11.1)
[2021-08-02 07:00] LABS: BUN/Creatinine Ratio 22 (6-26); Blood Urea Nitrogen 29 mg/dL (8-23); Calcium 10.1 mg/dL (8.6-10.3); Carbon Dioxide 23 mEq/L (23-29); Chloride 102 mEq/L (98-107); Glucose 117 mg/dL (70-105); Magnesium 2.3 mg/dL (1.6-2.6); Osmolality,Calculated 281 (280-300); Potassium 3.8 mEq/L (3.5-5.1); Sodium 132 mEq/L (136-145); eGFR For African Americans > 60 (> 60); eGFR For Non-African Americans 52 (> 60)
[2021-08-02] MEDS: Cholecalciferol (D-3) 1,000 UNIT (25MCG) TABLET PO SCH (10:00)
[2021-08-02] MEDS: Acyclovir 200 MG CAPSULE PO SCH ×4 (10:00→21:02)
[2021-08-02] MEDS: Megestrol Acetate 400 MG/10 ML UDC PO SCH (10:00)
[2021-08-02] MEDS: Multivit/Ca/Min/Fe/FA 1 TAB TABLET PO SCH (10:01)
[2021-08-02] MEDS: Cyanocobalamin (B-12) 1,000 MCG TABLET PO SCH (10:01)
[2021-08-02 11:25] LABS: C-Reactive Protein 35 mg/L (Less than 10)
[2021-08-02] MEDS: DAPTOmycin 700 MG in 0.9 % Sodium Chloride 100 ML IVPB SCH (17:27)
[2021-08-03] MEDS: Acyclovir 200 MG CAPSULE PO SCH ×5 (04:41→20:30)
[2021-08-03] MEDS: Cholecalciferol (D-3) 1,000 UNIT (25MCG) TABLET PO SCH (07:51)
[2021-08-03] MEDS: Multivit/Ca/Min/Fe/FA 1 TAB TABLET PO SCH (07:51)
[2021-08-03] MEDS: Megestrol Acetate 400 MG/10 ML UDC PO SCH (07:51)
[2021-08-03] MEDS: Cyanocobalamin (B-12) 1,000 MCG TABLET PO SCH (07:53)
[2021-08-03] MEDS: DAPTOmycin 700 MG in 0.9 % Sodium Chloride 100 ML IVPB SCH (17:10)
[2021-08-04] MEDS: Acyclovir 200 MG CAPSULE PO SCH ×2 (01:16→20:37)
[2021-08-04] MEDS ORDERED: Ipratropium/Albuterol Neb 3 ML IH PRN (17:42)
[2021-08-05] MEDS: Megestrol Acetate 400 MG/10 ML UDC PO SCH (08:06)
[2021-08-05] MEDS: Acyclovir 200 MG CAPSULE PO SCH ×3 (08:07→20:04)
[2021-08-05] MEDS: Cholecalciferol (D-3) 1,000 UNIT (25MCG) TABLET PO SCH (08:07)
[2021-08-05] MEDS: Cyanocobalamin (B-12) 1,000 MCG TABLET PO SCH (08:07)
[2021-08-05] MEDS: Multivit/Ca/Min/Fe/FA 1 TAB TABLET PO SCH (08:07)
[2021-08-05 12:13] LABS: BUN/Creatinine Ratio 18 (6-26); Blood Urea Nitrogen 23 mg/dL (8-23); Calcium 9.7 mg/dL (8.6-10.3); Carbon Dioxide 16 mEq/L (23-29); Chloride 106 mEq/L (98-107); Glucose 188 mg/dL (70-105); Osmolality,Calculated 281 (280-300); Potassium 4.3 mEq/L (3.5-5.1); Sodium 131 mEq/L (136-145); eGFR For African Americans > 60 (> 60); eGFR For Non-African Americans 53 (> 60)
[2021-08-05 12:58] LABS: Basophils # 0.1 K/mcL (0.0-0.2); Basophils % 0.5 %; Eosinophils # 0.2 K/mcL (0.0-0.6); Hematocrit 42.5 % (37.5-50.1); Hemoglobin 13.4 g/dL (12.9-16.9); Immature Granulocytes % 0.6 % (0-4); Lymphocytes # 2.3 K/mcL (0.6-4.6); Lymphocytes % 24.9 %; Mean Corpuscular HGB Conc 31.5 g/dL (31.6-35.5); Mean Corpuscular Hemoglobin 27.4 pg (28.0-33.3); Mean Corpuscular Volume 86.9 fL (83.0-100.0); Mean Platelet Volume 9.5 fL (9.4-12.4); Monocytes # 0.9 K/mcL (0.0-1.3); Monocytes % 10.1 %; Neutrophils # 5.8 K/mcL (1.6-8.9); Platelet Count 357 K/mcL (140-400); Red Blood Count 4.89 M/mcL (4.19-5.50); Red Cell Distribution Width 14.4 % (11.5-14.5); Segmented Neutrophils % 61.9 %; White Blood Count 9.3 K/mcL (4.3-11.1)
[2021-08-05 21:40] LABS: C-Reactive Protein 20 mg/L (Less than 10)
[2021-08-06] MEDS: Cholecalciferol (D-3) 1,000 UNIT (25MCG) TABLET PO SCH (07:58)
[2021-08-06] MEDS: Acyclovir 200 MG CAPSULE PO SCH ×3 (07:58→20:21)
[2021-08-06] MEDS: Megestrol Acetate 400 MG/10 ML UDC PO SCH (07:58)
[2021-08-06] MEDS: Multivit/Ca/Min/Fe/FA 1 TAB TABLET PO SCH (07:58)
[2021-08-06] MEDS: Cyanocobalamin (B-12) 1,000 MCG TABLET PO SCH (07:58)
[2021-08-07] MEDS: Acyclovir 200 MG CAPSULE PO SCH ×3 (07:23→19:52)
[2021-08-07] MEDS: Multivit/Ca/Min/Fe/FA 1 TAB TABLET PO SCH (07:23)
[2021-08-07] MEDS: Cholecalciferol (D-3) 1,000 UNIT (25MCG) TABLET PO SCH (07:23)
[2021-08-07] MEDS: Cyanocobalamin (B-12) 1,000 MCG TABLET PO SCH (07:23)
[2021-08-08] MEDS: Cyanocobalamin (B-12) 1,000 MCG TABLET PO SCH (08:00)
[2021-08-08] MEDS: Multivit/Ca/Min/Fe/FA 1 TAB TABLET PO SCH (08:01)
[2021-08-08] MEDS: Cholecalciferol (D-3) 1,000 UNIT (25MCG) TABLET PO SCH (08:01)
[2021-08-08] MEDS: Acyclovir 200 MG CAPSULE PO SCH ×3 (08:02→20:11)
[2021-08-09] MEDS: Cholecalciferol (D-3) 1,000 UNIT (25MCG) TABLET PO SCH (08:07)
[2021-08-09] MEDS: Acyclovir 200 MG CAPSULE PO SCH ×3 (08:07→20:00)
[2021-08-09] MEDS: Multivit/Ca/Min/Fe/FA 1 TAB TABLET PO SCH (08:07)
[2021-08-09] MEDS: Cyanocobalamin (B-12) 1,000 MCG TABLET PO SCH (08:07)
[2021-08-10] MEDS: Cyanocobalamin (B-12) 1,000 MCG TABLET PO SCH (07:41)
[2021-08-10] MEDS: Cholecalciferol (D-3) 1,000 UNIT (25MCG) TABLET PO SCH (07:41)
[2021-08-10] MEDS: Multivit/Ca/Min/Fe/FA 1 TAB TABLET PO SCH (07:41)
[2021-08-11 08:41] LABS: Basophils # 0.1 K/mcL (0.0-0.2); Basophils % 0.8 %; Eosinophils # 0.2 K/mcL (0.0-0.6); Eosinophils % 2.8 %; Hematocrit 42.8 % (37.5-50.1); Hemoglobin 13.9 g/dL (12.9-16.9); Immature Granulocytes % 0.6 % (0-4); Lymphocytes # 2.5 K/mcL (0.6-4.6); Lymphocytes % 30.4 %; Mean Corpuscular HGB Conc 32.5 g/dL (31.6-35.5); Mean Corpuscular Hemoglobin 27.7 pg (28.0-33.3); Mean Corpuscular Volume 85.4 fL (83.0-100.0); Mean Platelet Volume 9.5 fL (9.4-12.4); Monocytes # 1.1 K/mcL (0.0-1.3); Monocytes % 13.7 %; Neutrophils # 4.3 K/mcL (1.6-8.9); Platelet Count 351 K/mcL (140-400); Red Blood Count 5.01 M/mcL (4.19-5.50); Red Cell Distribution Width 15.2 % (11.5-14.5); Segmented Neutrophils % 51.7 %; White Blood Count 8.3 K/mcL (4.3-11.1)
[2021-08-11 09:14] LABS: Calcium 10.6 mg/dL (8.6-10.3); Magnesium 2.4 mg/dL (1.6-2.6); Potassium 4.3 mEq/L (3.5-5.1)
[2021-08-11] MEDS: Cholecalciferol (D-3) 1,000 UNIT (25MCG) TABLET PO SCH (09:19)
[2021-08-11] MEDS: Multivit/Ca/Min/Fe/FA 1 TAB TABLET PO SCH (09:19)
[2021-08-11] MEDS: Cyanocobalamin (B-12) 1,000 MCG TABLET PO SCH (09:19)
[2021-08-12] MEDS: Cyanocobalamin (B-12) 1,000 MCG TABLET PO SCH (08:06)
[2021-08-12] MEDS: Multivit/Ca/Min/Fe/FA 1 TAB TABLET PO SCH (08:06)
[2021-08-12] MEDS: Cholecalciferol (D-3) 1,000 UNIT (25MCG) TABLET PO SCH (08:06)
[2021-08-13] MEDS: Cholecalciferol (D-3) 1,000 UNIT (25MCG) TABLET PO SCH (10:38)
[2021-08-13] MEDS: Cyanocobalamin (B-12) 1,000 MCG TABLET PO SCH (10:38)
[2021-08-13] MEDS: Multivit/Ca/Min/Fe/FA 1 TAB TABLET PO SCH (10:38)
[2021-08-14 08:16] LABS: Basophils # 0.1 K/mcL (0.0-0.2); Eosinophils # 0.2 K/mcL (0.0-0.6); Eosinophils % 3.2 %; Hematocrit 42.5 % (37.5-50.1); Hemoglobin 13.9 g/dL (12.9-16.9); Immature Granulocytes % 0.4 % (0-4); Lymphocytes # 2.2 K/mcL (0.6-4.6); Lymphocytes % 30.3 %; Mean Corpuscular HGB Conc 32.7 g/dL (31.6-35.5); Mean Corpuscular Hemoglobin 27.9 pg (28.0-33.3); Mean Corpuscular Volume 85.2 fL (83.0-100.0); Mean Platelet Volume 9.6 fL (9.4-12.4); Monocytes # 1.1 K/mcL (0.0-1.3); Monocytes % 15.1 %; Neutrophils # 3.6 K/mcL (1.6-8.9); Platelet Count 330 K/mcL (140-400); Red Blood Count 4.99 M/mcL (4.19-5.50); White Blood Count 7.2 K/mcL (4.3-11.1)
[2021-08-14 08:45] LABS: Calcium 10.4 mg/dL (8.6-10.3); Potassium 4.2 mEq/L (3.5-5.1)
[2021-08-14] MEDS: Cyanocobalamin (B-12) 1,000 MCG TABLET PO SCH (11:08)
[2021-08-14] MEDS: Multivit/Ca/Min/Fe/FA 1 TAB TABLET PO SCH (11:08)
[2021-08-14] MEDS: predniSONE 20 MG TABLET PO SCH (11:08)
[2021-08-14] MEDS: Cholecalciferol (D-3) 1,000 UNIT (25MCG) TABLET PO SCH (11:08)
[2021-08-15] MEDS: predniSONE 20 MG TABLET PO SCH (08:58)
[2021-08-15] MEDS: Cholecalciferol (D-3) 1,000 UNIT (25MCG) TABLET PO SCH (08:58)
[2021-08-15] MEDS: Cyanocobalamin (B-12) 1,000 MCG TABLET PO SCH (08:58)
[2021-08-15] MEDS: Multivit/Ca/Min/Fe/FA 1 TAB TABLET PO SCH (08:58)
[2021-08-16] MEDS: Cyanocobalamin (B-12) 1,000 MCG TABLET PO SCH (08:28)
[2021-08-16] MEDS: Multivit/Ca/Min/Fe/FA 1 TAB TABLET PO SCH (08:28)
[2021-08-16] MEDS: Cholecalciferol (D-3) 1,000 UNIT (25MCG) TABLET PO SCH (08:28)
[2021-08-16] MEDS: predniSONE 20 MG TABLET PO SCH (08:28)
[2021-08-17] MEDS: predniSONE 20 MG TABLET PO SCH (07:27)
[2021-08-17] MEDS: Multivit/Ca/Min/Fe/FA 1 TAB TABLET PO SCH (07:27)
[2021-08-17] MEDS: Cholecalciferol (D-3) 1,000 UNIT (25MCG) TABLET PO SCH (07:27)
[2021-08-17] MEDS: Cyanocobalamin (B-12) 1,000 MCG TABLET PO SCH (07:28)
[2021-08-18] MEDS: Multivit/Ca/Min/Fe/FA 1 TAB TABLET PO SCH (09:21)
[2021-08-18] MEDS: Cholecalciferol (D-3) 1,000 UNIT (25MCG) TABLET PO SCH (09:21)
[2021-08-18] MEDS: predniSONE 20 MG TABLET PO SCH (09:21)
[2021-08-18] MEDS: Cyanocobalamin (B-12) 1,000 MCG TABLET PO SCH (09:21)
[2021-08-19] MEDS: Cholecalciferol (D-3) 1,000 UNIT (25MCG) TABLET PO SCH (09:24)
[2021-08-19] MEDS: Multivit/Ca/Min/Fe/FA 1 TAB TABLET PO SCH (09:24)
[2021-08-19] MEDS: Cyanocobalamin (B-12) 1,000 MCG TABLET PO SCH (09:24)
[2021-08-20 07:54] LABS: Basophils % 0.4 %; Eosinophils # 0.2 K/mcL (0.0-0.6); Eosinophils % 1.7 %; Hematocrit 46.1 % (37.5-50.1); Hemoglobin 15.3 g/dL (12.9-16.9); Immature Granulocytes % 1.1 % (0-4); Lymphocytes # 2.7 K/mcL (0.6-4.6); Lymphocytes % 25.4 %; Mean Corpuscular HGB Conc 33.2 g/dL (31.6-35.5); Mean Corpuscular Hemoglobin 28.1 pg (28.0-33.3); Mean Corpuscular Volume 84.7 fL (83.0-100.0); Mean Platelet Volume 9.9 fL (9.4-12.4); Monocytes # 1.4 K/mcL (0.0-1.3); Monocytes % 12.8 %; Neutrophils # 6.2 K/mcL (1.6-8.9); Platelet Count 338 K/mcL (140-400); Red Blood Count 5.44 M/mcL (4.19-5.50); Red Cell Distribution Width 15.1 % (11.5-14.5); Segmented Neutrophils % 58.6 %; White Blood Count 10.5 K/mcL (4.3-11.1)
[2021-08-20 08:16] LABS: BUN/Creatinine Ratio 39 (6-26); Blood Urea Nitrogen 48 mg/dL (8-23); Calcium 10.2 mg/dL (8.6-10.3); Carbon Dioxide 24 mEq/L (23-29); Chloride 106 mEq/L (98-107); Glucose 100 mg/dL (70-105); Magnesium 2.2 mg/dL (1.6-2.6); Osmolality,Calculated 297 (280-300); Potassium 4.1 mEq/L (3.5-5.1); Sodium 137 mEq/L (136-145); eGFR For African Americans > 60 (> 60); eGFR For Non-African Americans 55 (> 60)
[2021-08-20] MEDS: Cyanocobalamin (B-12) 1,000 MCG TABLET PO SCH (10:29)
[2021-08-20] MEDS: Multivit/Ca/Min/Fe/FA 1 TAB TABLET PO SCH (10:29)
[2021-08-20] MEDS: Cholecalciferol (D-3) 1,000 UNIT (25MCG) TABLET PO SCH (10:29)
[2021-08-20 11:20] VITALS: BP 119/78; PULSE 71; RESP 17; TEMP 97.6; O2SAT 93
== END 2021-08-20 12:05 | disposition hospice, inpatient (51) | DRG 690 ==
LOC: INPPIK 07-12 18:31 → UNDODISIN 08-04 04:47
PROVIDERS: ADMIT Internal Medicine; ATTEND Internal Medicine